=== PATIENT | female | born 1995 | race Caucasian/White ===

== ENCOUNTER 2020-08-11 19:25 | Emergency (ER) | payer BC, OTHER ==
[~2020-08-11] VITALS: Ht 154.9 cm; Wt 67.0 kg
[~2020-08-11 19:25] MED LIST: PREN1TAB62 PO
[2020-08-11] MEDS ORDERED: GLUCAGON 1 MG ONE (19:48)
[2020-08-11] MEDS ORDERED: LORazepam 2 MG/ML, 1ML ONE (19:48)
[2020-08-11] MEDS ORDERED: LORazepam 2 MG/ML, 1ML IVPush ONE (20:00)
[2020-08-11] MEDS ORDERED: SODIUM CHLORIDE 0.9% 1,000ML IVBOLUS ONE (20:00)
[2020-08-11] MEDS ORDERED: GLUCAGON 1 MG IVPush ONE (20:00)
[2020-08-11] MEDS ORDERED: ONDANSETRON 2MG/ML, 2ML IVPush ONE (20:00)
--- NOTE | 2020-08-11 20:05 | NUR ---
PT MEDICATED WITH GLUCAGON BEGAN COUGHING AND VOMITING AND DISLODGED A LARGE PIECE OF TRI TIP. PT NOW FEELING BETTER ABLE TO SIP SPRITE AND DENIES ANY PAIN. ERP UPDATED
[2020-08-11 20:38] VITALS: BP 106/65
--- NOTE | 2020-08-11 20:47 | NUR ---
Patient/Caregiver given discharge instructions and they have confirmed that they understand the instructions. Patient ambulatory with steady gait.
== END 2020-08-11 20:59 | disposition home or self-care (01) ==
LOC: ED 20:45
DX: T18.128A Food in esophagus causing other injury, initial encounter (principal); X58.XXXA Exposure to other specified factors, initial encounter; Y93.89 Activity, other specified; Y92.89 Other specified places as the place of occurrence of the external cause; Y99.8 Other external cause status
CPT/HCPCS: 96374; 99283; J1610